=== PATIENT | female | born 1995 | race Caucasian/White ===

== ENCOUNTER 2017-05-03 18:16 | Emergency (ER) | payer OTHER ==
[~2017-05-03] VITALS: Ht 157.5 cm; Wt 76.4 kg
[2017-05-03 18:22] VITALS: TEMP 99.1
[2017-05-03] MEDS ORDERED: MULTI VITAMINS1 TAB PO (18:26)
[2017-05-03] MEDS ORDERED: PHENERGAN 25 TA25 MG PO (18:26)
[2017-05-03] MEDS ORDERED: CLARITIN 1010 MG/TAB PO (18:26)
[2017-05-03 19:01] LABS: COLLECTION METHOD CLEAN CATCH
[2017-05-03 19:15] LABS: MUCOUS Present /lpf; PH 6 (5-8); URINE APPEARANCE Cloudy; URINE BACTERIA None Seen /hpf; URINE BILIRUBIN Negative (NEGATIVE); URINE BLOOD 3+ (NEGATIVE); URINE COLOR Yellow; URINE GLUCOSE Negative (NEGATIVE); URINE KETONE Trace (NEGATIVE); URINE LEUKOCYTE ESTERASE 2+ (NEGATIVE); URINE PROTEIN(semi-quant) 2+ (NEGATIVE); URINE RBC >50 /hpf; URINE UROBILINOGEN Negative (NEGATIVE)
[2017-05-03 19:16] LABS: URINE WBC >50 /hpf
[2017-05-03] MEDS ORDERED: OMNICEF 300MG300 MG PO (20:26)
[2017-05-03] MEDS ORDERED: ULTRAM 50MG TAB50 MG PO (20:26)
[2017-05-03] MEDS ORDERED: PYRIDIUM 100MG100 MG PO (20:30)
[2017-05-03 20:46] VITALS: BP 108/75; PULSE 89
== END 2017-05-03 20:56 | disposition home or self-care (01) ==
LOC: COL.ER 18:16
PROVIDERS: Nurse Practitioner
DX: N12 Tubulo-interstitial nephritis, not specified as acute or chronic (principal); N39.0 Urinary tract infection, site not specified
CPT/HCPCS: J0696; J1885; J7030

== ENCOUNTER 2017-12-16 19:54 | Emergency (ER) | payer OTHER ==
[~2017-12-16] VITALS: Ht 157.5 cm; Wt 77.3 kg
[~2017-12-16 19:54] MED LIST: CLARITIN 1010 MG/TAB PO; MULTI VITAMINS1 TAB PO; OMNICEF 300MG300 MG PO; PHENERGAN 25 TA25 MG PO; PYRIDIUM 100MG100 MG PO; ULTRAM 50MG TAB50 MG PO
[2017-12-16 19:56] VITALS: BP 115/66; PULSE 106; TEMP 99
[2017-12-16] MEDS ORDERED: LEVAQUIN 5500 MG/TA1 PO (20:09)
[2017-12-16] MEDS ORDERED: NEXPLANON68 MG ID (20:43)
[2017-12-16 20:50] LABS: BASO # 0.1 (0.0-0.2); BASO % 0.4 % (0.0-2.0); EOS # 0.2 (0.0-0.7); EOS % 1.5 % (0-4.0); GRAN # 7.5 (1.4-6.5); GRAN % 64.5 % (42.2-75.2); HEMATOCRIT 34.8 % (37.0-47.0); HEMOGLOBIN 11.8 g/dl (12.5-16.0); LYMPH # 3.1 (1.2-3.4); LYMPH % 26.2 % (20.0-51.0); MEAN CELL VOLUME 89 fl (80.0-100.0); MEAN CORPUSCULAR HEMOGLOBIN 30 pg (27.0-31.0); MEAN CORPUSCULAR HGB CONC 34 g/dl (33.0-37.0); MEAN PLATELET VOLUME 9.9 fl (7.4-10.4); MONO # 0.8 (0.1-0.6); MONO % 7.2 % (1.7-9.3); PLATELET COUNT 268 K/mm3 (130-400); REDCELL DISTRIBUTION WIDTH-CV 12.4 % (11.5-14.5)
[2017-12-16 20:56] LABS: COLLECTION METHOD CLEAN CATCH
[2017-12-16 20:59] LABS: ALBUMIN 3.8 gm/dL (3.5-5.0); BILIRUBIN,TOTAL 0.2 mg/dL (0.0-1.0); CALCIUM 8.6 mg/dL (8.4-10.2); CREATININE, serum 0.69 mg/dL (0.52-1.25); POTASSIUM 3.3 mmol/L (3.4-5.0); TOTAL PROTEIN 7.1 gm/dL (6.4-8.2)
[2017-12-16 21:04] LABS: MUCOUS Present /lpf; PH 6 (5-8); URINE APPEARANCE Hazy; URINE BACTERIA None Seen /hpf; URINE BILIRUBIN Negative (NEGATIVE); URINE BLOOD Negative (NEGATIVE); URINE COLOR Yellow; URINE GLUCOSE Negative (NEGATIVE); URINE KETONE Negative (NEGATIVE); URINE LEUKOCYTE ESTERASE Negative (NEGATIVE); URINE NITRATE Negative (NEGATIVE); URINE PROTEIN(semi-quant) Negative (NEGATIVE); URINE RBC 0-2 /hpf; URINE UROBILINOGEN Negative (NEGATIVE)
[2017-12-16] MEDS ORDERED: OMNICEF 300MG300 MG PO ×2 (21:21→22:05)
[2017-12-16] MEDS ORDERED: ZOFRAN ODT4 MG PO ×2 (21:21→22:05)
== END 2017-12-16 21:43 | disposition home or self-care (01) ==
LOC: COL.ER 19:54
PROVIDERS: Physician Assistant
DX: J01.90 Acute sinusitis, unspecified (principal); J45.909 Unspecified asthma, uncomplicated
CPT/HCPCS: J1885

== ENCOUNTER → 2019-02-11 | Outpatient (CLI) | payer OTHER ==
[~2019-02-11] MED LIST changes: +LEVAQUIN 5500 MG/TA1 PO; +NEXPLANON68 MG ID; +ZOFRAN ODT4 MG PO
== END ==
LOC: COL.RAD 02-04 09:45
DX: N28.89 Other specified disorders of kidney and ureter (principal)

== ENCOUNTER 2019-08-24 13:46 | Emergency (ER) | payer BC ==
[~2019-08-24] VITALS: Ht 157.5 cm; Wt 89.5 kg
[2019-08-24 13:51] VITALS: TEMP 98.7
[2019-08-24 15:53] LABS: BASO % 0.4 % (0.0-2.0); EOS # 0.1 (0.0-0.7); EOS % 1.1 % (0-4.0); GRAN # 6.1 (1.4-6.5); GRAN % 60.4 % (42.2-75.2); HEMOGLOBIN 11.8 g/dl (12.5-16.0); LYMPH # 3.3 (1.2-3.4); LYMPH % 32.7 % (20.0-51.0); MEAN CELL VOLUME 88 fl (80.0-100.0); MEAN CORPUSCULAR HEMOGLOBIN 29 pg (27.0-31.0); MEAN CORPUSCULAR HGB CONC 32 g/dl (33.0-37.0); MEAN PLATELET VOLUME 10.4 fl (7.4-10.4); MONO # 0.5 (0.1-0.6); MONO % 5.1 % (1.7-9.3); PLATELET COUNT 272 K/mm3 (130-400); RED BLOOD COUNT 4.13 M/mm3 (4.10-5.30); REDCELL DISTRIBUTION WIDTH-CV 12.5 % (11.5-14.5)
[2019-08-24 15:56] LABS: HEMATOCRIT 36.4 % (37.0-47.0)
[2019-08-24 16:20] LABS: ALANINE AMINOTRANSFERASE 21 U/L (4-34); ALBUMIN 4.2 gm/dL (3.5-5.0); ALKALINE PHOSPHATASE 110 U/L (50-136); ANION GAP 9 mmol/L (7-16); AST,SGOT 30 U/L (15-37); BILIRUBIN,TOTAL 0.3 mg/dL (0.0-1.0); BLOOD UREA NITROGEN 10 mg/dL (7-17); C-REACTIVE PROTEIN 2.8 mg/dL (0.0-0.9); CALCIUM 8.8 mg/dL (8.4-10.2); CARBON DIOXIDE 27 mmol/L (22-30); CHLORIDE 102 mmol/L (98-107); CREATININE, serum 0.71 (0.52-1.25); GLUCOSE 89 mg/dL (74-106); POTASSIUM 3.8 mmol/L (3.4-5.0); SODIUM 139 mmol/L (137-145); TOTAL PROTEIN 7.9 gm/dL (6.4-8.2)
[2019-08-24 16:41] LABS: TROPONIN-I < 0.012 ng/mL (0.000-0.035)
[2019-08-24 16:57] VITALS: BP 116/78; PULSE 77
== END 2019-08-24 16:58 | disposition home or self-care (01) ==
LOC: COL.ER 13:46
PROVIDERS: Physician Assistant
DX: R07.89 Other chest pain (principal); Z88.0 Allergy status to penicillin; Z88.5 Allergy status to narcotic agent

== ENCOUNTER → 2020-06-27 | Outpatient (CLI) | payer BC ==
[~2020-06-27] MED LIST changes: +NATURAL IRON65 MG PO; +PRENATAL MVI PO
== END ==
LOC: ZCOL.LAB 08:00
DX: Z20.822 Contact with and (suspected) exposure to COVID-19 (principal)

== ENCOUNTER 2020-06-29 21:59 | Inpatient (IN) | payer BC ==
[~2020-06-29] VITALS: Ht 156.2 cm; Wt 105.9 kg
[~2020-06-29 21:59] MED LIST changes: -NATURAL IRON65 MG PO; -PRENATAL MVI PO
--- NOTE | 2020-06-29 22:05 | NUR ---
G1L0. 40-3. Ambulatory to LDR 5 with spouse. EFM and TOCO explained and applied. Pt states " I think my water has been broken all day." When asked around what time she thought she started leaking, pt states "I would say mid afernoon." Pt reports contractions every 5-6 mins that lasted for one hour but stopped around 2129. Denies vaginal bleeding. Reports good movement. 2216: SVE /-3, amniotest positive. Clear fluid noted. Plan of care explained to pt and spouse who verbalize their understanding. 222: at nurses station and updated on pts status. See physican notification. Admit orders received. FHR strip reviewed. 223: at bedside for bedside ultrasound. Vertex presentation noted. Plan of care explained to pt per Dr. Myers. 225: called unit for new orders. See physican notification. 2300: Report given to Barbara CARROLL.
[2020-06-29 22:30] VITALS: BP 110/76; PULSE 93; TEMP 98.5
[2020-06-29] MEDS ORDERED: NATURAL IRON65 MG PO (22:51)
[2020-06-29] MEDS ORDERED: PRENATAL MVI PO (22:52)
--- NOTE | 2020-06-29 23:20 | NUR ---
18G IV started in left hand with 1 attempt. Admission labs obtained off IV start. Lactated Ringers infusing to gravity.
[2020-06-29 23:30] VITALS: BP 105/63; PULSE 80
--- NOTE | 2020-06-29 23:30 | NUR ---
Consents reviewed and signed with patient and spouse. All questions answered.
[2020-06-29 23:49] LABS: BASO % 0.3 % (0.0-2.0); EOS # 0.1 (0.0-0.7); EOS % 0.5 % (0-4.0); GRAN # 8.5 (1.4-6.5); GRAN % 74.7 % (42.2-75.2); LYMPH % 17.5 % (20.0-51.0); MEAN CELL VOLUME 87 fl (80.0-100.0); MEAN CORPUSCULAR HGB CONC 33 g/dl (33.0-37.0); MONO # 0.8 (0.1-0.6); MONO % 6.6 % (1.7-9.3); PLATELET COUNT 295 K/mm3 (130-400); RED BLOOD COUNT 3.29 M/mm3 (4.10-5.30); REDCELL DISTRIBUTION WIDTH-CV 14.2 % (11.5-14.5)
[2020-06-29 23:50] LABS: HEMATOCRIT 28.5 % (37.0-47.0); HEMOGLOBIN 9.4 g/dl (12.5-16.0); MEAN CORPUSCULAR HEMOGLOBIN 29 pg (27.0-31.0)
[2020-06-30] VITALS (85 sets, daily range): BP systolic 88–143; BP diastolic 38–100; PULSE 74–113; TEMP 98.1–98.7
--- NOTE | 2020-06-30 | NUR ---
Category 1 FHR tracing obtained. Pitocin initiated at 2 mu/min per protocol.
--- NOTE | 2020-06-30 00:45 | NUR ---
Category 1 FHR tracing. Monitors off. Pt up to bathroom to void. RN to bedside at 0555 to put patient back on monitor but patient walking back to bathroom. No FHR tracing [id number]
--- NOTE | 2020-06-30 01:53 | NUR ---
Category 1 FHR tracing. Monitors off, pt up to bathroom to void.
--- NOTE | 2020-06-30 02:10 | NUR ---
Pt visibly uncomfortable and breathing through contractions, requests SVE at this time. -/-3
--- NOTE | 2020-06-30 03:27 | NUR ---
0225 - Pt requesting epidural. Jade Justice CRNA called to come to bedside. 0250 - JACOBO Rose at bedside. Pt positioned to sitting on edge of bed. Epidural procedure, risks, and benefits reviewed with patient, pt verbalized understanding. 0300 - Difficulty tracing FHR due to maternal body habitus and positioning. RN attempting to handhold US monitor. Tracing maternal HR intermittently, confirmed by pulse ox. 0320 - Difficulty tracing FHR due to maternal body habitus and positioning. RN continues to attempt to handhold US monitor. Tracing maternal HR intermittently, confirmed by pulse ox. 0327 - Pt reports feeling hot, diaphoretic and appears pale. BP 80/47. Fluid bolus intitiated. Small test dose by Lynnette Justice CRNA at this time. Pt denies other reactions. 0329 - BP 86/51 0335 - BP 98/57, pt positioned to laying on left side. Safety precautions reviewed, call light within reach, bed in low and locked position. See anesthesia record
--- NOTE | 2020-06-30 04:15 | NUR ---
Barber catheter placed to dependent drainage. Clear, yellow urine returned. Secured to leg with statlock. SVE /-3.
--- NOTE | 2020-06-30 06:20 | NUR ---
Report from Jay Lao RN and care of patient assumed at this time. RN at bedside to introduce self and review plan of care. Patient comfortable with epidural and denies questions. RN at bedside adjusting toco and palpating abdomen.
--- NOTE | 2020-06-30 07:00 | NUR ---
RN at bedside palpating abdomen and adjusting toco.
--- NOTE | 2020-06-30 08:30 | NUR ---
Dr. Keys at bedside, reviews FHR strip and contraction pattern. Discussed plan of care to continue to labor and recheck at 1000 unless indication sooner. If unchanged at 1000, physician will place IUPC. Continue Vancomycin for GBS positive and prolonged ROM. No futher orders at this time.
--- NOTE | 2020-06-30 14:15 | NUR ---
RN at bedside palpating abdomen and adjusting toco.
--- NOTE | 2020-06-30 15:30 | NUR ---
Patient positioned RL in side lying release position with 2 RN at bedside for support. 1540- Patient positioned LL in side lying release position. 1555- Patient repositioned LL with peanut ball. See physician notification.
--- NOTE | 2020-06-30 16:15 | NUR ---
Dr. Keys at bedside. Reviews FHR strip and contraction pattern. Discusing IUPC, patient agrees. 1615- IUPC placed by Dr. Keys. 1627- Physician remains on unit. Orders to continue increasing Pitocin to 20 mU at this time.
--- NOTE | 2020-06-30 16:40 | NUR ---
[id number]: Us 85
--- NOTE | 2020-06-30 18:30 | NUR ---
Report recieved from Sebastian CARROLL. 184: Pt laying right lateral. Plan of care explained. SVE unchanged. 1842: Roles at nurses station and update on SVE given. 1844: Roles at pts bedside to talk with pt on plan of care. 1847: Decision for made by and Pt. Questions and procedure explained to pt and who verabalize their understanding. Pt prepped for surgery. 1901: Pt off monitors and wheeled by to OR in bed. at bedside.
[2020-07-01 04:15] VITALS: BP 114/62; PULSE 77; TEMP 97.3
[2020-07-01 07:23] LABS: HEMATOCRIT 26.6 % (37.0-47.0); HEMOGLOBIN 8.4 g/dl (12.5-16.0)
[2020-07-01 08:08] VITALS: BP 96/51; PULSE 80; TEMP 98.1
--- NOTE | 2020-07-01 08:33 | NUR ---
REPORT RECEIVED FROM OFF GOING RN RENNY Dumont CARE TAKEN OVER BY THIS RN
--- NOTE | 2020-07-01 09:15 | NUR ---
Initial visit; Parents thanked Agency Sales Representative for offering congratulations and God's blessings for the of their daughter. Agency Sales Representative thanked family for choosing [facility].
[2020-07-01 12:38] VITALS: BP 107/55; PULSE 95; TEMP 98.5
[2020-07-01 17:23] VITALS: BP 101/61; PULSE 83; TEMP 98.5
[2020-07-01 21:24] VITALS: BP 100/58; PULSE 89; TEMP 98.2
[2020-07-02 07:20] VITALS: BP 119/67; PULSE 88; TEMP 98.1
[2020-07-02] MEDS ORDERED: NORCO 325 MG-51 TAB PO (08:26)
[2020-07-02] MEDS ORDERED: MOTRIN 800800 MG/TAB PO (08:26)
[2020-07-02 16:20] VITALS: BP 127/71; PULSE 94; TEMP 98.9
== END 2020-07-02 17:00 | disposition home or self-care (01) | DRG 788 ==
LOC: LDRO 21:59 → LDR 22:40 → OB 06-30 23:24
PROVIDERS: Student in an Organized Health Care Education/Training Program; ADMIT Obstetrics & Gynecology
PROC: 10D00Z1 Extraction of Products of Conception, Low, Open Approach (ICD-10-PCS; principal; 2020-06-30)
DX: O99.824 Streptococcus B carrier state complicating childbirth (principal); O62.0 Primary inadequate contractions; O48.0 Post-term pregnancy; O99.344 Other mental disorders complicating childbirth; F41.9 Anxiety disorder, unspecified; F32.9 Major depressive disorder, single episode, unspecified; O99.52 Diseases of the respiratory system complicating childbirth; J45.909 Unspecified asthma, uncomplicated; O99.02 Anemia complicating childbirth; D64.9 Anemia, unspecified; O99.214 Obesity complicating childbirth; Z37.0 Single live birth; Z3A.40 40 weeks gestation of pregnancy; Z88.0 Allergy status to penicillin; Z88.5 Allergy status to narcotic agent
CPT/HCPCS: J1885; J2175; J2370; J2400; J2405; J2590; J3370; J7050; J7120

== ENCOUNTER 2021-03-17 10:56 | Emergency (ER) | payer BC ==
[~2021-03-17] VITALS: Ht 157.5 cm; Wt 95.0 kg
[~2021-03-17 10:56] MED LIST changes: +MOTRIN 800800 MG/TAB PO; +NATURAL IRON65 MG PO; +NORCO 325 MG-51 TAB PO; +PRENATAL MVI PO
[2021-03-17] MEDS ORDERED: TYLENOL 500MG500 MG PO (11:39)
[2021-03-17 11:40] VITALS: TEMP 99.9
[2021-03-17] MEDS ORDERED: CLEOCIN HCL300 MG PO (13:02)
[2021-03-17] MEDS ORDERED: NORCO 325 MG-51 TAB PO (13:02)
[2021-03-17 13:21] VITALS: BP 120/61; PULSE 80
== END 2021-03-17 13:25 | disposition home or self-care (01) ==
LOC: COL.ER 10:56
DX: H92.01 Otalgia, right ear (principal); H92.02 Otalgia, left ear; K08.89 Other specified disorders of teeth and supporting structures; R51.9 Headache, unspecified
CPT/HCPCS: J1885; J2765

== ENCOUNTER 2021-07-17 18:10 | Emergency (ER) | payer BC ==
[~2021-07-17] VITALS: Ht 157.5 cm; Wt 104.5 kg
[~2021-07-17 18:10] MED LIST changes: +CLEOCIN HCL300 MG PO; +TYLENOL 500MG500 MG PO
[2021-07-17 19:54] VITALS: TEMP 100.2
[2021-07-17 20:03] VITALS: BP 133/79; PULSE 114
== END 2021-07-17 20:10 | disposition home or self-care (01) ==
LOC: COL.ER 18:10
DX: J06.9 Acute upper respiratory infection, unspecified (principal); J45.909 Unspecified asthma, uncomplicated; Z88.5 Allergy status to narcotic agent; Z20.822 Contact with and (suspected) exposure to COVID-19

== ENCOUNTER → 2023-04-25 | Outpatient (CLI) | payer BC ==
[~2023-04-25] MED LIST changes: +FLOVENT 44MCG I13 GM IH
== END ==
LOC: COL.CARD 07:29
DX: R06.02 Shortness of breath (principal)
CPT/HCPCS: J7674

== ENCOUNTER 2023-12-27 16:48 | Emergency (ER) | payer BC ==
[~2023-12-27] VITALS: Ht 160 cm; Wt 102.3 kg
[2023-12-27 16:53] VITALS: TEMP 98.4
[2023-12-27 17:26] LABS: BASO % 0.4 % (0.0-2.0); EOS # 0.1 K/mm3 (0.0-0.7); EOS % 1.3 % (0.0-4.0); GRAN # 7.2 K/mm3 (1.4-6.5); GRAN % 69.8 % (42.2-75.2); HEMATOCRIT 37.3 % (37.0-47.0); HEMOGLOBIN 12.4 g/dl (12.5-16.0); LYMPH # 2.4 K/mm3 (1.2-3.4); LYMPH % 23.2 % (20.0-51.0); MEAN CELL VOLUME 86 fl (80.0-100.0); MEAN CORPUSCULAR HEMOGLOBIN 29 pg (27-31); MEAN CORPUSCULAR HGB CONC 33 g/dl (33.0-37.0); MONO # 0.5 K/mm3 (0.1-0.6); PLATELET COUNT 307 K/mm3 (130-400); RED BLOOD COUNT 4.33 M/mm3 (4.10-5.30); REDCELL DISTRIBUTION WIDTH-CV 15.4 % (11.5-14.5)
[2023-12-27] MEDS ORDERED: NS 1,000 ML IV ONE (17:30)
[2023-12-27 17:32] LABS: ERYTHROCYTE SEDIMENTATION RATE 41 mm/hr (0-20)
[2023-12-27 17:39] LABS: ALANINE AMINOTRANSFERASE 21 U/L (0-55); ALBUMIN 3.7 g/dL (3.5-5.0); ALKALINE PHOSPHATASE 90 U/L (40-150); ANION GAP 13 mmol/L (7-16); AST,SGOT 19 U/L (5-34); BILIRUBIN,TOTAL 0.1 mg/dL (0.2-1.2); BLOOD UREA NITROGEN 13 mg/dL (7-19); C-REACTIVE PROTEIN 3.56 mg/dL (0.00-0.50); CALCIUM 9.1 mg/dL (8.4-10.2); CHLORIDE 106 mEq/L (98-107); CREATININE, serum 0.82 mg/dL (0.57-1.11); GLUCOSE 98 mg/dL (70-99); SODIUM 141 mEq/L (136-145)
[2023-12-27 17:46] LABS: TROPONIN-I < 0.010 ng/mL (0.00-0.033)
[2023-12-27] MEDS ORDERED: Iohexol 350 - 100 ML VIAL IV ONE (18:34)
[2023-12-27] MEDS ORDERED: NS 50 ML IV ONE (18:34)
[2023-12-27 21:00] VITALS: BP 11/76; PULSE 91
== END 2023-12-27 21:05 | disposition home or self-care (01) ==
LOC: COL.ER 16:48
PROVIDERS: Emergency Medicine
DX: I82.C21 Chronic embolism and thrombosis of right internal jugular vein (principal); Z79.01 Long term (current) use of anticoagulants
CPT/HCPCS: J7030; Q9967

== ENCOUNTER 2024-01-02 11:31 | Emergency (ER) | payer BC ==
[~2024-01-02] VITALS: Ht 160 cm; Wt 103.6 kg
[2024-01-02 12:30] LABS: BASO % 0.3 % (0.0-2.0); EOS % 0.1 % (0.0-4.0); GRAN % 80.3 % (42.2-75.2); HEMATOCRIT 38.7 % (37.0-47.0); HEMOGLOBIN 12.5 g/dl (12.5-16.0); LYMPH # 1.7 K/mm3 (1.2-3.4); LYMPH % 11.5 % (20.0-51.0); MEAN CELL VOLUME 86 fl (80.0-100.0); MEAN CORPUSCULAR HEMOGLOBIN 28 pg (27-31); MEAN CORPUSCULAR HGB CONC 32 g/dl (33.0-37.0); MONO # 1.1 K/mm3 (0.1-0.6); MONO % 7.4 % (1.7-9.3); PLATELET COUNT 306 K/mm3 (130-400); RED BLOOD COUNT 4.52 M/mm3 (4.10-5.30); REDCELL DISTRIBUTION WIDTH-CV 15.5 % (11.5-14.5)
[2024-01-02 12:49] LABS: ALBUMIN 3.7 g/dL (3.5-5.0); BILIRUBIN,TOTAL 0.8 mg/dL (0.2-1.2); CALCIUM 9.5 mg/dL (8.4-10.2); CREATININE, serum 0.83 mg/dL (0.57-1.11); POTASSIUM 3.5 mEq/L (3.5-4.5); TOTAL PROTEIN 8.2 g/dl (6.2-8.1)
[2024-01-02 12:55] LABS: TROPONIN-I 0.01 ng/mL (0.00-0.033)
[2024-01-02] MEDS ORDERED: Iohexol 300 - 100 ML VIAL IV ONE (13:50)
[2024-01-02] MEDS ORDERED: NS 100 ML IV SCH (13:51)
[2024-01-02 14:06] VITALS: TEMP 101.5
[2024-01-02] MEDS ORDERED: Acetaminophen 500 MG TAB PO ONE (14:15)
[2024-01-02] MEDS ORDERED: NS 1,000 ML IV ONE (14:15)
[2024-01-02 16:15] VITALS: BP 122/75; PULSE 124
== END 2024-01-02 16:20 | disposition short-term general hospital (02) ==
LOC: COL.ER 11:31
PROVIDERS: Nurse Practitioner
DX: I31.39 Other pericardial effusion (noninflammatory) (principal); B39.9 Histoplasmosis, unspecified; Z79.01 Long term (current) use of anticoagulants
CPT/HCPCS: J7030; Q9967